=== PATIENT | male | born 1955 | race Caucasian/White ===

== ENCOUNTER 2020-08-13 18:53 | Inpatient (IN) | payer MEDICARE ==
[~2020-08-13] VITALS: Ht 162.6 cm; Wt 99.9 kg
[2020-08-13] MEDS ORDERED: ASPI-1169 PO (19:52)
[2020-08-13] MEDS ORDERED: METFORMIN (19:52)
[2020-08-13] MEDS ORDERED: GLIPIZIDE (19:52)
[2020-08-13 20:04] LABS: BASOPHILS # (AUTO) 0.2 K/uL (0.0-8.0); BASOPHILS % (AUTO) 2.8 % (0.0-2.0); HEMATOCRIT 37.3 % (36.7-47.1); HEMOGLOBIN 12.6 g/dL (12.5-16.3); LYMPHOCYTES # (AUTO) 0.6 K/uL (20.0-40.0); MEAN CORPUSCULAR HEMOGLOBIN 28.6 uug (23.8-33.4); MEAN CORPUSCULAR HGB CONC 34 g/dL (32.5-36.3); MEAN CORPUSCULAR VOLUME 84.9 fL (73.0-96.2); MONOCYTES # (AUTO) 0.5 K/uL (2.0-10.0); MONOCYTES % (AUTO) 5.7 % (0.0-11.0); NEUTROPHILS # (AUTO) 6.7 K/uL (1.8-8.9); NEUTROPHILS % (AUTO) 83.5 % (38.5-71.5); PLATELET COUNT (AUTO) 279 K/uL (152-348); RED BLOOD CELL COUNT(AUTO) 4.39 MIL/uL (4.06-5.63)
[2020-08-13 20:13] LABS: BILIRUBIN,DIRECT 0.2 mg/dL (0.0-0.2); BILIRUBIN,TOTAL 0.4 mg/dL (0.2-1.0); CREATININE 3.6 mg/dL (0.6-1.3); POTASSIUM 3.8 mmol/L (3.5-5.1); TOTAL PROTEIN, SERUM 8.3 g/dL (6.4-8.2)
[2020-08-13] MEDS ORDERED: IV NORMAL SALINE 1000 ML BAG IV ONE (20:15)
--- NOTE | 2020-08-13 20:45 | NUR ---
Dr Man accepted patient to inpatient.
[2020-08-13] MEDS ORDERED: MIRALAX 17 GM POWD.PACK PO PRN (23:00)
[2020-08-13] MEDS ORDERED: HYDROCODONE/APAP 5-325MG TABLET PO PRN (23:00)
[2020-08-13] MEDS ORDERED: ONDANSETRON 4 MG/2 ML VIAL IV PRN (23:00)
[2020-08-13] MEDS ORDERED: DEXTROSE 50% 50 ML DISP.SYRIN IV PRN (23:15)
--- NOTE | 2020-08-14 01:00 | NUR ---
Patientt repositioned to relieve pressure on right side.
--- NOTE | 2020-08-14 03:00 | NUR ---
Patient positioned to relieve pressure on left side. Linen used to elevate both heels from the mattress. Patient denies any acute distress noted, tylenol 650mg given PO along with Hydralazine 25mg PO, patient was able to tolerate swalling small amount of liquid, without coughing, but if given a large amount patient starts to cough. Will continue to monitor as bed still pends.
[2020-08-14] MEDS: IV 1/2NS 1000 ML 1,000 ML IV PRN (03:07)
[2020-08-14] MEDS: hydrALAZINE HCL 25 MG TABLET PO PRN ×2 (03:19→21:46)
[2020-08-14] MEDS: ACETAMINOPHEN 325 MG TABLET PO PRN ×2 (03:19→11:26)
[2020-08-14] MEDS ORDERED: hydrALAZINE HCL 25 MG TABLET ONE ×2 (03:23→21:39)
[2020-08-14] MEDS ORDERED: ACETAMINOPHEN 325 MG TABLET ONE ×2 (03:24→11:33)
--- NOTE | 2020-08-14 06:52 | NUR ---
Report handed off to DRU Cannon for continuity of care.
[2020-08-14] MEDS: PANTOPRAZOLE SODIUM 40 MG TABLET.DR PO SCH (07:00)
[2020-08-14 07:47] LABS: BASOPHILS % (AUTO) 0.1 % (0.0-2.0); EOSINOPHILS % (AUTO) 0.1 % (0.0-7.0); HEMATOCRIT 33.3 % (36.7-47.1); HEMOGLOBIN 11.2 g/dL (12.5-16.3); LYMPHOCYTES # (AUTO) 1.2 K/uL (20.0-40.0); LYMPHOCYTES % (AUTO) 19.2 % (20.5-51.5); MEAN CORPUSCULAR HEMOGLOBIN 28.6 uug (23.8-33.4); MEAN CORPUSCULAR HGB CONC 34 g/dL (32.5-36.3); MEAN CORPUSCULAR VOLUME 85.1 fL (73.0-96.2); MONOCYTES # (AUTO) 0.5 K/uL (2.0-10.0); MONOCYTES % (AUTO) 8.4 % (0.0-11.0); NEUTROPHILS # (AUTO) 4.4 K/uL (1.8-8.9); NEUTROPHILS % (AUTO) 72.2 % (38.5-71.5); PLATELET COUNT (AUTO) 242 K/uL (152-348); RED BLOOD CELL COUNT(AUTO) 3.91 MIL/uL (4.06-5.63)
[2020-08-14] MEDS ORDERED: DEXAMETHASONE SOD PHOSPHATE 10 MG INJ ONE (08:06)
[2020-08-14] MEDS ORDERED: PANTOPRAZOLE SODIUM 40 MG TABLET.DR PO ONE (08:06)
[2020-08-14] MEDS ORDERED: ASCORBIC ACID 500 MG TABLET ONE (08:07)
[2020-08-14] MEDS ORDERED: ASPIRIN 81 MG TAB.CHEW ONE (08:07)
[2020-08-14] MEDS ORDERED: CHOLECALCIFEROL 400 UNITS TABLET ONE (08:08)
[2020-08-14] MEDS: ASPIRIN 81 MG TAB.CHEW PO SCH (08:17)
[2020-08-14] MEDS: CHOLECALCIFEROL 1,000 UNIT TABLET PO SCH (08:17)
[2020-08-14] MEDS: ASCORBIC ACID 500 MG TABLET PO SCH (08:17)
[2020-08-14] MEDS: DEXAMETHASONE SOD PHOSPHATE 4 MG INJ IV SCH (08:17)
[2020-08-14] MEDS: BLOOD SUGAR DIAGNOSTIC 1 EACH STRIP VI SCH ×4 (08:17→21:46)
[2020-08-14 08:23] LABS: THYROID STIMULATING HORMONE 1.345 mIU/mL (0.358-3.740)
[2020-08-14 08:27] LABS: BILIRUBIN,TOTAL 0.2 mg/dL (0.2-1.0); CREATININE 3.5 mg/dL (0.6-1.3); MAGNESIUM 1.7 mg/dL (1.8-2.4); PHOSPHOROUS 3.9 mg/dL (2.5-4.9); POTASSIUM 3.5 mmol/L (3.5-5.1); TOTAL PROTEIN, SERUM 6.9 g/dL (6.4-8.2)
[2020-08-14] MEDS ORDERED: HEPARIN SODIUM,PORCINE 5,000 UNITS/ML VIAL ONE ×2 (11:19→21:39)
[2020-08-14] MEDS: HEPARIN SODIUM,PORCINE 5,000 UNITS/ML VIAL SQ SCH ×2 (11:22→21:45)
[2020-08-14] MEDS: INSULIN REGULAR, HUMAN 300 UNIT/3 ML VIAL SQ PRN ×3 (11:25→22:02)
[2020-08-14] MEDS ORDERED: INSULIN REGULAR, HUMAN 300 UNIT/3 ML VIAL ONE (11:29)
[2020-08-14] MEDS ORDERED: POTASSIUM CHLORIDE 50 ML IV SCH (11:30)
[2020-08-14] MEDS ORDERED: MAGNESIUM SULFATE/D5W 100 ML IV SCH (11:30)
[2020-08-14] MEDS ORDERED: MAGNESIUM SULFATE/D5W 100 ML ONE (12:48)
[2020-08-14] MEDS ORDERED: POTASSIUM CHLORIDE 50 ML ONE (12:48)
[2020-08-14] MEDS: DOCUSATE SODIUM 100 MG CAPSULE PO SCH (21:35)
[2020-08-14] MEDS ORDERED: DOCUSATE SODIUM 100 MG CAPSULE PO ONE (21:39)
--- NOTE | 2020-08-14 22:54 | NUR ---
Paged DR Man for BP 217/96. Denies SOB and CP.
--- NOTE | 2020-08-14 23:04 | NUR ---
Informed Dr Man of BP 217/96. Recieved orders and carried out.
[2020-08-14] MEDS: METOPROLOL TARTRATE 50 MG TABLET PO SCH (23:25)
[2020-08-14] MEDS ORDERED: METOPROLOL TARTRATE 50 MG TABLET ONE (23:27)
[2020-08-15] MEDS: CLONIDINE HCL 0.1 MG TABLET PO PRN ×2 (00:06→22:19)
[2020-08-15] MEDS ORDERED: CLONIDINE HCL 0.1 MG TABLET ONE (00:07)
[2020-08-15] MEDS ORDERED: DILTIAZEM HCL IV 125 MG in IV NORMAL SALINE 100 ML IV PRN (01:15)
[2020-08-15] MEDS ORDERED: NICARDIPINE IN NS 200 ML IV PRN (01:30)
--- NOTE | 2020-08-15 01:30 | NUR ---
Spoke to [facility] hospitalist non destructive evaluation manager, Disha Tripp NP and informed her that SBP has been in the 190 or greater even after administering PRN BP medication. New orders recieved.
[2020-08-15] MEDS ORDERED: NICARDIPINE IN NS 200 ML IV ONE (01:46)
[2020-08-15] MEDS: PANTOPRAZOLE SODIUM 40 MG TABLET.DR PO SCH (07:58)
[2020-08-15] MEDS ORDERED: PANTOPRAZOLE SODIUM 40 MG TABLET.DR PO ONE (08:05)
[2020-08-15] MEDS: BLOOD SUGAR DIAGNOSTIC 1 EACH STRIP VI SCH ×4 (08:06→21:00)
[2020-08-15] MEDS: INSULIN REGULAR, HUMAN 300 UNIT/3 ML VIAL SQ PRN ×4 (08:22→22:00)
[2020-08-15] MEDS ORDERED: INSULIN REGULAR, HUMAN 300 UNIT/3 ML VIAL ONE (08:28)
[2020-08-15 09:28] LABS: BASOPHILS % (AUTO) 0.1 % (0.0-2.0); HEMOGLOBIN 11.6 g/dL (12.5-16.3); LYMPHOCYTES # (AUTO) 1.5 K/uL (20.0-40.0); LYMPHOCYTES % (AUTO) 13.8 % (20.5-51.5); MEAN CORPUSCULAR HEMOGLOBIN 28.4 uug (23.8-33.4); MEAN CORPUSCULAR HGB CONC 33 g/dL (32.5-36.3); MEAN CORPUSCULAR VOLUME 85.6 fL (73.0-96.2); MONOCYTES # (AUTO) 0.8 K/uL (2.0-10.0); NEUTROPHILS # (AUTO) 8.7 K/uL (1.8-8.9); NEUTROPHILS % (AUTO) 79.1 % (38.5-71.5); PLATELET COUNT (AUTO) 297 K/uL (152-348); RED BLOOD CELL COUNT(AUTO) 4.09 MIL/uL (4.06-5.63)
[2020-08-15] MEDS: CHOLECALCIFEROL 1,000 UNIT TABLET PO SCH (09:41)
[2020-08-15] MEDS ORDERED: DEXAMETHASONE SOD PHOSPHATE 10 MG INJ ONE (09:47)
[2020-08-15] MEDS ORDERED: ASPIRIN 81 MG TAB.CHEW ONE (09:47)
[2020-08-15] MEDS ORDERED: ASCORBIC ACID 500 MG TABLET ONE (09:48)
[2020-08-15] MEDS ORDERED: HEPARIN SODIUM,PORCINE 5,000 UNITS/ML VIAL ONE (09:48)
[2020-08-15] MEDS ORDERED: METOPROLOL TARTRATE 50 MG TABLET ONE (09:48)
[2020-08-15 09:51] LABS: BILIRUBIN,TOTAL 0.3 mg/dL (0.2-1.0); CREATININE 3.1 mg/dL (0.6-1.3); MAGNESIUM 2.1 mg/dL (1.8-2.4); POTASSIUM 3.5 mmol/L (3.5-5.1); TOTAL PROTEIN, SERUM 7.1 g/dL (6.4-8.2)
[2020-08-15] MEDS: ASCORBIC ACID 500 MG TABLET PO SCH (09:58)
[2020-08-15] MEDS: ASPIRIN 81 MG TAB.CHEW PO SCH (09:59)
[2020-08-15] MEDS: METOPROLOL TARTRATE 50 MG TABLET PO SCH ×2 (09:59→21:00)
[2020-08-15] MEDS: DEXAMETHASONE SOD PHOSPHATE 4 MG INJ IV SCH (09:59)
[2020-08-15] MEDS: HEPARIN SODIUM,PORCINE 5,000 UNITS/ML VIAL SQ SCH ×2 (10:00→23:03)
--- NOTE | 2020-08-15 19:00 | NUR ---
Patient laying on hospital bed A/Ox3. Patient denies CP, SOB. Patient on 2Liter of O2 via N/C satting at 97%. Hep lock patent with maintance fluid running.No distress noted.
--- NOTE | 2020-08-15 21:23 | NUR ---
Transfered to 3rd floor Tele via [employer].
--- NOTE | 2020-08-15 21:30 | NUR ---
RECEIVED PT FROM ER VIA [facility]. UNDER THE CARE OF DR. RUBIN. DX: COVID/ARF. PT IN NO ACUTE DISTRESS. ADMISSION PROCESS AND CARE PLAN INITIATED. BELONGING LIST NOTED. HALF-WAY ASSESSMENT DONE. SKIN ISSUES NOTED. SAFETY AND COMFORT PROVIDED. WILL CONTINUE TO MONITOR.
[2020-08-15] MEDS: DOCUSATE SODIUM 100 MG CAPSULE PO SCH (21:47)
[2020-08-15] MEDS: AMLODIPINE 5 MG TABLET PO SCH (22:00)
[2020-08-15 22:17] VITALS: BP 193/82
[2020-08-15] MEDS: hydrALAZINE HCL 50 MG TABLET PO SCH (23:21)
[2020-08-16 00:06] VITALS: BP 187/84
[2020-08-16] MEDS: IV 1/2NS 1000 ML 1,000 ML IV PRN ×2 (00:12→11:48)
[2020-08-16 04:12] VITALS: BP 186/74
[2020-08-16] MEDS: CLONIDINE HCL 0.1 MG TABLET PO PRN ×2 (04:49→12:44)
--- NOTE | 2020-08-16 05:29 | NUR ---
PT SLEPT INTERMITTENTLY . PT IN NO ACUTE DISTRESS. IV INTACT. PT GIVEN CATAPRES 0.1MG PRN AT 2219H FOR 193/82 AND 0449H FOR 186/74. PT BLOOD PRESSURE ON HIGH SIDE . PT ASYMPTOMATIC, NO COMPLAINT OF SOB, CHEST PAIN. PT TOLERATED IT WELL. PT ON ROOM AIR. SAFETY AND COMFORT PROVIDED. ALL NEEDS ARE MET. WILL ENDORSE TO INCOMING FOR CONTINUITY OF CARE.
[2020-08-16 05:33] LABS: *BILIRUBIN,URIN NEGATIVE (NEGATIVE); *CLARITY,URINE CLEAR (CLEAR); *COLOR,URINE YELLOW (YELLOW); *KETONES,URINE NEGATIVE (NEGATIVE); *UROBILINOGEN,URINE 0.2 E.U./dl (NORMAL); LEUKOCYTE ESTERASE ,URINE NEGATIVE (NEGATIVE); NITRITE, URINE NEGATIVE (NEGATIVE); UGLUCOSE TRACE (NEGATIVE)
[2020-08-16 06:02] LABS: BASOPHILS % (AUTO) 0.3 % (0.0-2.0); HEMOGLOBIN 11.6 g/dL (12.5-16.3); LYMPHOCYTES # (AUTO) 1.1 K/uL (20.0-40.0); LYMPHOCYTES % (AUTO) 12.3 % (20.5-51.5); MEAN CORPUSCULAR HEMOGLOBIN 28.6 uug (23.8-33.4); MEAN CORPUSCULAR HGB CONC 34 g/dL (32.5-36.3); MEAN CORPUSCULAR VOLUME 84.1 fL (73.0-96.2); MONOCYTES # (AUTO) 0.7 K/uL (2.0-10.0); MONOCYTES % (AUTO) 7.5 % (0.0-11.0); NEUTROPHILS # (AUTO) 7.4 K/uL (1.8-8.9); NEUTROPHILS % (AUTO) 79.9 % (38.5-71.5); PLATELET COUNT (AUTO) 291 K/uL (152-348); RED BLOOD CELL COUNT(AUTO) 4.05 MIL/uL (4.06-5.63); WHITE BLOOD COUNT (AUTO) 9.3 K/uL (3.6-10.2)
[2020-08-16 06:11] LABS: *BLOOD, URINE TRACE (NEGATIVE)
[2020-08-16 06:13] LABS: BACTERIA,URINE NONE SEEN /HPF (NONE SEEN); WBC,URINE 0-3 /HPF (0-3)
[2020-08-16 06:14] LABS: MUCUS,URINE FEW /LPF (0-FEW); SQUAMOUS EPITHELIAL CELL,UR FEW /HPF (NONE SEEN); URINE AMORPHOUS URATE FEW /HPF
--- NOTE | 2020-08-16 06:30 | NUR ---
AT 0503H NORCO GIVEN PER PT REQUEST. PT IN NO ACUTE DISTRESS. BLOOD PRESSURE IS 175/65. WILL CONTINUE TO MONITOR.
[2020-08-16 06:31] VITALS: BP 175/65
[2020-08-16] MEDS: BLOOD SUGAR DIAGNOSTIC 1 EACH STRIP VI SCH ×4 (06:33→21:51)
[2020-08-16] MEDS: PANTOPRAZOLE SODIUM 40 MG TABLET.DR PO SCH (06:34)
[2020-08-16] MEDS: hydrALAZINE HCL 50 MG TABLET PO SCH ×3 (06:35→23:11)
[2020-08-16 07:08] LABS: CREATININE 2.8 mg/dL (0.6-1.3); PHOSPHOROUS 2.9 mg/dL (2.5-4.9); POTASSIUM 4.1 mmol/L (3.5-5.1)
[2020-08-16] MEDS: INSULIN REGULAR, HUMAN 300 UNIT/3 ML VIAL SQ PRN ×4 (08:08→21:55)
[2020-08-16 08:57] LABS: *URINE TOTAL PROTEIN RANDOM 272.5 mg/dL (<150/24HR)
[2020-08-16] MEDS: ASCORBIC ACID 500 MG TABLET PO SCH (08:58)
[2020-08-16] MEDS: ASPIRIN 81 MG TAB.CHEW PO SCH (08:58)
[2020-08-16] MEDS: METOPROLOL TARTRATE 50 MG TABLET PO SCH ×2 (08:58→21:00)
[2020-08-16] MEDS: CHOLECALCIFEROL 1,000 UNIT TABLET PO SCH (08:59)
[2020-08-16] MEDS: DEXAMETHASONE SOD PHOSPHATE 4 MG INJ IV SCH (08:59)
[2020-08-16] MEDS: AMLODIPINE 5 MG TABLET PO SCH ×2 (08:59→21:51)
[2020-08-16] MEDS: HEPARIN SODIUM,PORCINE 5,000 UNITS/ML VIAL SQ SCH ×2 (09:32→21:55)
[2020-08-16] MEDS: ISOSORBIDE MONONITRATE 60 MG TAB.SR.24H PO SCH (09:32)
[2020-08-16 12:00] VITALS: BP 178/64
--- NOTE | 2020-08-16 12:44 | NUR ---
BLOOD PRESSURE AT THIS TIME IS 178/64 MEDICATED WITH CLONIDINE ORDERED PATIENT IS ASSYMPTOMATIC AT THIS TIME WILL RECHECK BLOOD PRESSURE.
--- NOTE | 2020-08-16 18:00 | NUR ---
BLOOD PRESSURE AT THIS TIME IS 150/71 MADE COMFORTABLE WILL CONTINUE TO OBSERVE.
[2020-08-16 18:02] VITALS: BP 150/71
[2020-08-16 19:25] VITALS: BP 160/76
[2020-08-16] MEDS: DOCUSATE SODIUM 100 MG CAPSULE PO SCH (21:50)
[2020-08-16] MEDS: Z GUARD REMEDY PASTE 57 GM TUBE TOP SCH (21:51)
[2020-08-17] MEDS: IV 1/2NS 1000 ML 1,000 ML IV PRN ×2 (04:10→23:38)
[2020-08-17] MEDS: hydrALAZINE HCL 50 MG TABLET PO SCH ×3 (06:31→22:12)
[2020-08-17] MEDS: PANTOPRAZOLE SODIUM 40 MG TABLET.DR PO SCH (06:31)
[2020-08-17 06:43] VITALS: BP 152/80
[2020-08-17 06:53] LABS: HEMATOCRIT 33.7 % (36.7-47.1); HEMOGLOBIN 11.2 g/dL (12.5-16.3); LYMPHOCYTES # (AUTO) 1.5 K/uL (20.0-40.0); LYMPHOCYTES % (AUTO) 17.3 % (20.5-51.5); MEAN CORPUSCULAR HEMOGLOBIN 28.4 uug (23.8-33.4); MEAN CORPUSCULAR HGB CONC 33 g/dL (32.5-36.3); MEAN CORPUSCULAR VOLUME 85.3 fL (73.0-96.2); MONOCYTES # (AUTO) 0.7 K/uL (2.0-10.0); MONOCYTES % (AUTO) 7.9 % (0.0-11.0); NEUTROPHILS # (AUTO) 6.4 K/uL (1.8-8.9); NEUTROPHILS % (AUTO) 74.8 % (38.5-71.5); PLATELET COUNT (AUTO) 294 K/uL (152-348); RED BLOOD CELL COUNT(AUTO) 3.95 MIL/uL (4.06-5.63); WHITE BLOOD COUNT (AUTO) 8.6 K/uL (3.6-10.2)
[2020-08-17] MEDS: BLOOD SUGAR DIAGNOSTIC 1 EACH STRIP VI SCH ×4 (07:05→21:21)
[2020-08-17 07:24] LABS: CREATININE 2.7 mg/dL (0.6-1.3); PHOSPHOROUS 3.1 mg/dL (2.5-4.9); POTASSIUM 3.8 mmol/L (3.5-5.1)
--- NOTE | 2020-08-17 07:30 | NUR ---
Received patient resting in bed, awake, alert and oriented times 4. No sign of distress noted at this time. Safety precautions in place with call light and belongings within reach. Will continue to monitor.
[2020-08-17] MEDS: ASPIRIN 81 MG TAB.CHEW PO SCH (09:40)
[2020-08-17] MEDS: INSULIN REGULAR, HUMAN 300 UNIT/3 ML VIAL SQ PRN ×4 (09:40→21:24)
[2020-08-17] MEDS: ASCORBIC ACID 500 MG TABLET PO SCH (09:41)
[2020-08-17] MEDS: DEXAMETHASONE SOD PHOSPHATE 4 MG INJ IV SCH (09:41)
[2020-08-17] MEDS: CHOLECALCIFEROL 1,000 UNIT TABLET PO SCH (09:48)
[2020-08-17] MEDS: ISOSORBIDE MONONITRATE 60 MG TAB.SR.24H PO SCH (09:48)
[2020-08-17] MEDS: AMLODIPINE 5 MG TABLET PO SCH ×2 (09:48→21:26)
[2020-08-17] MEDS: METOPROLOL TARTRATE 50 MG TABLET PO SCH ×2 (09:48→21:25)
[2020-08-17] MEDS: Z GUARD REMEDY PASTE 57 GM TUBE TOP SCH ×2 (09:49→21:26)
[2020-08-17] MEDS: HEPARIN SODIUM,PORCINE 5,000 UNITS/ML VIAL SQ SCH ×2 (09:50→21:24)
[2020-08-17 12:00] VITALS: BP 148/69
[2020-08-17 16:00] VITALS: BP 141/68
[2020-08-17 21:17] VITALS: BP 149/75
[2020-08-17] MEDS: DOCUSATE SODIUM 100 MG CAPSULE PO SCH (21:25)
[2020-08-18 05:36] VITALS: BP 157/51
[2020-08-18] MEDS: PANTOPRAZOLE SODIUM 40 MG TABLET.DR PO SCH (06:08)
[2020-08-18] MEDS: hydrALAZINE HCL 50 MG TABLET PO SCH ×3 (06:08→22:00)
[2020-08-18] MEDS: BLOOD SUGAR DIAGNOSTIC 1 EACH STRIP VI SCH ×4 (06:32→22:22)
--- NOTE | 2020-08-18 06:53 | NUR ---
Patient is resting in bed. No sign of distress noted. Gave all medications as ordered. Safety precautions are in place. Will endorse to oncoming shift.
[2020-08-18] MEDS: CHOLECALCIFEROL 1,000 UNIT TABLET PO SCH (08:52)
[2020-08-18] MEDS: DEXAMETHASONE SOD PHOSPHATE 4 MG INJ IV SCH (08:52)
[2020-08-18] MEDS: AMLODIPINE 5 MG TABLET PO SCH ×2 (08:53→22:06)
[2020-08-18] MEDS: HEPARIN SODIUM,PORCINE 5,000 UNITS/ML VIAL SQ SCH ×2 (08:53→22:12)
[2020-08-18] MEDS: ISOSORBIDE MONONITRATE 60 MG TAB.SR.24H PO SCH (08:53)
[2020-08-18] MEDS: METOPROLOL TARTRATE 50 MG TABLET PO SCH ×2 (08:53→22:06)
[2020-08-18] MEDS: ASPIRIN 81 MG TAB.CHEW PO SCH (08:53)
[2020-08-18] MEDS: ASCORBIC ACID 500 MG TABLET PO SCH (08:54)
[2020-08-18] MEDS: INSULIN REGULAR, HUMAN 300 UNIT/3 ML VIAL SQ PRN ×4 (08:55→22:36)
[2020-08-18] MEDS: Z GUARD REMEDY PASTE 57 GM TUBE TOP SCH ×2 (11:28→22:13)
[2020-08-18 11:36] VITALS: BP 155/60
[2020-08-18] MEDS: IV 1/2NS 1000 ML 1,000 ML IV PRN (12:17)
[2020-08-18 15:13] LABS: BASOPHILS % (AUTO) 0.1 % (0.0-2.0); HEMATOCRIT 32.3 % (36.7-47.1); HEMOGLOBIN 10.9 g/dL (12.5-16.3); LYMPHOCYTES % (AUTO) 11.4 % (20.5-51.5); MEAN CORPUSCULAR HEMOGLOBIN 28.2 uug (23.8-33.4); MEAN CORPUSCULAR HGB CONC 34 g/dL (32.5-36.3); MEAN CORPUSCULAR VOLUME 83.6 fL (73.0-96.2); MONOCYTES # (AUTO) 0.4 K/uL (2.0-10.0); NEUTROPHILS # (AUTO) 7.7 K/uL (1.8-8.9); NEUTROPHILS % (AUTO) 84.5 % (38.5-71.5); PLATELET COUNT (AUTO) 350 K/uL (152-348); RED BLOOD CELL COUNT(AUTO) 3.86 MIL/uL (4.06-5.63); WHITE BLOOD COUNT (AUTO) 9.2 K/uL (3.6-10.2)
[2020-08-18 15:32] LABS: MAGNESIUM 1.9 mg/dL (1.8-2.4); PHOSPHOROUS 2.8 mg/dL (2.5-4.9)
[2020-08-18 16:00] VITALS: BP 129/56
[2020-08-18 20:20] VITALS: BP 138/69
[2020-08-18] MEDS: IV NORMAL SALINE 1000 ML BAG IV PRN (22:05)
[2020-08-18] MEDS: DOCUSATE SODIUM 100 MG CAPSULE PO SCH (22:06)
[2020-08-19] MEDS: hydrALAZINE HCL 50 MG TABLET PO SCH ×3 (05:53→22:10)
[2020-08-19 06:00] VITALS: BP 154/77
[2020-08-19] MEDS: PANTOPRAZOLE SODIUM 40 MG TABLET.DR PO SCH (06:37)
[2020-08-19] MEDS: BLOOD SUGAR DIAGNOSTIC 1 EACH STRIP VI SCH ×3 (07:01→16:31)
[2020-08-19] MEDS: INSULIN REGULAR, HUMAN 300 UNIT/3 ML VIAL SQ PRN ×3 (08:48→16:30)
[2020-08-19] MEDS: HEPARIN SODIUM,PORCINE 5,000 UNITS/ML VIAL SQ SCH ×2 (08:48→20:23)
[2020-08-19] MEDS: DEXAMETHASONE SOD PHOSPHATE 4 MG INJ IV SCH (08:49)
[2020-08-19] MEDS: CHOLECALCIFEROL 1,000 UNIT TABLET PO SCH (08:49)
[2020-08-19] MEDS: ASPIRIN 81 MG TAB.CHEW PO SCH (08:49)
[2020-08-19] MEDS: ASCORBIC ACID 500 MG TABLET PO SCH (08:50)
[2020-08-19] MEDS: ISOSORBIDE MONONITRATE 60 MG TAB.SR.24H PO SCH (08:50)
[2020-08-19] MEDS: AMLODIPINE 5 MG TABLET PO SCH ×2 (08:50→20:19)
[2020-08-19] MEDS: METOPROLOL TARTRATE 50 MG TABLET PO SCH ×2 (08:51→20:18)
[2020-08-19] MEDS: Z GUARD REMEDY PASTE 57 GM TUBE TOP SCH ×2 (08:52→20:20)
--- NOTE | 2020-08-19 09:00 | NUR ---
RECEIVED PATIENT IN BED AWAKE ALERT ORIENTED ABLE TON MAKE NEEDS KNOWN BUT DEPENDENT FOR ALL ADL REMAIN ON COVID ISOLATION AND PRECAUTION WITH NO SHORTNESS OF BREATH AT THIS TIME PATIENT REMAINS ON ROOM AIR NO S/S OF HYPO/HYPERGLYCEMIC REACTIONS WILL CONTINUE TON OBSERVE.
[2020-08-19 10:28] LABS: CREATININE 2.9 mg/dL (0.6-1.3); MAGNESIUM 1.7 mg/dL (1.8-2.4); PHOSPHOROUS 2.7 mg/dL (2.5-4.9); POTASSIUM 3.7 mmol/L (3.5-5.1)
[2020-08-19 10:29] LABS: BASOPHILS % (AUTO) 0.1 % (0.0-2.0); EOSINOPHILS % (AUTO) 0.3 % (0.0-7.0); HEMATOCRIT 32.8 % (36.7-47.1); HEMOGLOBIN 11.2 g/dL (12.5-16.3); LYMPHOCYTES # (AUTO) 2.1 K/uL (20.0-40.0); LYMPHOCYTES % (AUTO) 20.8 % (20.5-51.5); MEAN CORPUSCULAR HEMOGLOBIN 28.3 uug (23.8-33.4); MEAN CORPUSCULAR HGB CONC 34 g/dL (32.5-36.3); MEAN CORPUSCULAR VOLUME 82.7 fL (73.0-96.2); MONOCYTES # (AUTO) 0.9 K/uL (2.0-10.0); MONOCYTES % (AUTO) 9.2 % (0.0-11.0); NEUTROPHILS # (AUTO) 7.1 K/uL (1.8-8.9); NEUTROPHILS % (AUTO) 69.6 % (38.5-71.5); PLATELET COUNT (AUTO) 398 K/uL (152-348); RED BLOOD CELL COUNT(AUTO) 3.97 MIL/uL (4.06-5.63); WHITE BLOOD COUNT (AUTO) 10.2 K/uL (3.6-10.2)
[2020-08-19] MEDS: IV NORMAL SALINE 1000 ML BAG IV PRN ×2 (10:37→23:29)
[2020-08-19] MEDS: glipiZIDE 5 MG TABLET PO SCH ×2 (10:38→16:31)
[2020-08-19 12:00] VITALS: BP 113/42
[2020-08-19 16:00] VITALS: BP 117/67
--- NOTE | 2020-08-19 19:25 | NUR ---
NEW ORDERS NOTED FROM DR RUBIN TO DISCONTINUE ACCUCHEKS AND INSULIN COVERAGE AND NOTED
--- NOTE | 2020-08-19 19:54 | NUR ---
DR RUBIN HERE SEEN PATIENT WITH NEW ORDERS AT THIS TIME
[2020-08-19 20:18] VITALS: BP 143/65
[2020-08-19] MEDS: DOCUSATE SODIUM 100 MG CAPSULE PO SCH (20:18)
[2020-08-20 04:51] VITALS: BP 161/65
[2020-08-20] MEDS: hydrALAZINE HCL 50 MG TABLET PO SCH ×2 (05:15→13:32)
--- NOTE | 2020-08-20 05:15 | NUR ---
BLOOD PRESSURE IS 161/65 DUE APRESOLINE GIVEN ORDERED PATIENT IS ASSYMPTOMATIC AT THIS TIME.
[2020-08-20] MEDS: PANTOPRAZOLE SODIUM 40 MG TABLET.DR PO SCH (06:22)
[2020-08-20] MEDS: glipiZIDE 5 MG TABLET PO SCH ×2 (06:36→17:22)
[2020-08-20 07:18] LABS: BASOPHILS % (AUTO) 0.1 % (0.0-2.0); EOSINOPHILS % (AUTO) 0.3 % (0.0-7.0); HEMATOCRIT 33.4 % (36.7-47.1); HEMOGLOBIN 11.3 g/dL (12.5-16.3); LYMPHOCYTES # (AUTO) 2.1 K/uL (20.0-40.0); LYMPHOCYTES % (AUTO) 21.6 % (20.5-51.5); MEAN CORPUSCULAR HEMOGLOBIN 28.7 uug (23.8-33.4); MEAN CORPUSCULAR HGB CONC 34 g/dL (32.5-36.3); MEAN CORPUSCULAR VOLUME 84.3 fL (73.0-96.2); MONOCYTES # (AUTO) 0.9 K/uL (2.0-10.0); MONOCYTES % (AUTO) 8.8 % (0.0-11.0); NEUTROPHILS # (AUTO) 6.9 K/uL (1.8-8.9); NEUTROPHILS % (AUTO) 69.2 % (38.5-71.5); PLATELET COUNT (AUTO) 417 K/uL (152-348); RED BLOOD CELL COUNT(AUTO) 3.96 MIL/uL (4.06-5.63); WHITE BLOOD COUNT (AUTO) 9.9 K/uL (3.6-10.2)
[2020-08-20 07:19] LABS: BILIRUBIN,TOTAL 0.3 mg/dL (0.2-1.0); CREATININE 2.7 mg/dL (0.6-1.3); MAGNESIUM 1.9 mg/dL (1.8-2.4); PHOSPHOROUS 2.6 mg/dL (2.5-4.9); POTASSIUM 3.7 mmol/L (3.5-5.1); TOTAL PROTEIN, SERUM 6.5 g/dL (6.4-8.2)
--- NOTE | 2020-08-20 08:00 | NUR ---
RECEIVED PATIENT IN BED, AWAKE AND AOX4. RIGHT MIDLINE INTACT AND FLUSHING WELL. PATIENT DENIES SOB, OR CHEST PAIN AT THIS TIME. ALL NEEDS MET. SAFETY AND FALL PREVENTION IN PLACE. WILL CONTINUE TO MONITOR.
[2020-08-20] MEDS: ASPIRIN 81 MG TAB.CHEW PO SCH (09:19)
[2020-08-20] MEDS: METOPROLOL TARTRATE 50 MG TABLET PO SCH (09:20)
[2020-08-20] MEDS: CHOLECALCIFEROL 1,000 UNIT TABLET PO SCH (09:20)
[2020-08-20] MEDS: ISOSORBIDE MONONITRATE 60 MG TAB.SR.24H PO SCH (09:21)
[2020-08-20] MEDS: AMLODIPINE 5 MG TABLET PO SCH (09:21)
[2020-08-20] MEDS: ASCORBIC ACID 500 MG TABLET PO SCH (09:21)
[2020-08-20] MEDS: HEPARIN SODIUM,PORCINE 5,000 UNITS/ML VIAL SQ SCH (09:22)
[2020-08-20] MEDS: Z GUARD REMEDY PASTE 57 GM TUBE TOP SCH (09:27)
[2020-08-20 12:11] VITALS: BP 154/63
[2020-08-20 13:32] VITALS: BP 131/68
[2020-08-20] MEDS ORDERED: HYDR-4384 PO (15:13)
[2020-08-20] MEDS ORDERED: GLIP5TAB13 PO (15:13)
[2020-08-20] MEDS ORDERED: METO50TA16 PO (15:13)
[2020-08-20] MEDS ORDERED: HYDR50TA68 PO (15:13)
[2020-08-20] MEDS ORDERED: FOLI0.8T2 PO (15:13)
[2020-08-20] MEDS ORDERED: ASCO500T21 PO (15:13)
[2020-08-20] MEDS ORDERED: Isosorbide Mononitrate PO (15:13)
[2020-08-20] MEDS ORDERED: HYDR-894 PO (15:13)
[2020-08-20] MEDS ORDERED: CHOL10002 PO (15:13)
[2020-08-20] MEDS ORDERED: ACET325T53 PO (15:13)
[2020-08-20] MEDS ORDERED: PANT40TA2 PO (15:13)
[2020-08-20] MEDS ORDERED: POLY17PO4 PO (15:13)
[2020-08-20] MEDS ORDERED: AMLO-212 PO (15:13)
[2020-08-20] MEDS ORDERED: DOCU100C36 PO (15:13)
--- NOTE | 2020-08-20 17:39 | NUR ---
PATIENT DISCHARGED TO [facility]. LEFT VIA AMBULANCE WITH STAFF. DISCHARGE PAPERS WENT OVER WITH PATIENT AND SENT WITH PATIENT. REPORT GIVEN TO SNF NURSE-MIRIAM. PICTURES TAKEN OF SACRAL AND BILATERAL LOWER EXTREMITYS AND IN CHART. PATIENT BELONGINGS LEFT WITH PATIENT. PATIENT LEFT IN STABLE CONDITION. VS STABLE. ON RA SAT 95%
== END 2020-08-20 17:40 | DRG 177 ==
LOC: ER 18:53 → TRANSITION 23:01 → TELE3 08-15 21:04 → MEDSURG3 08-16 00:13
PROVIDERS: ADMIT Internal Medicine; ATTEND Internal Medicine
DX: U07.1 COVID-19 (principal); N17.0 Acute kidney failure with tubular necrosis; I21.4 Non-ST elevation (NSTEMI) myocardial infarction; E43 Unspecified severe protein-calorie malnutrition; I69.351 Hemiplegia and hemiparesis following cerebral infarction affecting right dominant side; D68.59 Other primary thrombophilia; J98.11 Atelectasis; Z87.891 Personal history of nicotine dependence; Z79.899 Other long term (current) drug therapy; Z79.82 Long term (current) use of aspirin; Z79.84 Long term (current) use of oral hypoglycemic drugs; E11.22 Type 2 diabetes mellitus with diabetic chronic kidney disease; I12.9 Hypertensive chronic kidney disease with stage 1 through stage 4 chronic kidney disease, or unspecified chronic kidney disease; N18.9 Chronic kidney disease, unspecified; E86.9 Volume depletion, unspecified; D63.8 Anemia in other chronic diseases classified elsewhere; E66.9 Obesity, unspecified; Z68.37 Body mass index [BMI] 37.0-37.9, adult; Z74.09 Other reduced mobility
CPT/HCPCS: 36415; 70030-TC; 70450; 71045; 76770; 83605; 83735; 83970; 84100; 84156; 84300; 84443; 85025; 85610; 87040; 93005; A4663; G0378; J1100; J1644; J1815; J3475; J3480; J3490; J7030